=== PATIENT | male | born 1980 | race Caucasian/White ===

== ENCOUNTER 2017-03-22 09:09 | Emergency (ER) | payer OTHER, BC ==
[~2017-03-22] VITALS: Ht 180.3 cm; Wt 115.2 kg
[2017-03-22] MEDS ORDERED: PERCOCET 5/31 TABLET PO (11:43)
[2017-03-22] MEDS ORDERED: KEFLEX500 MG PO (11:44)
[2017-03-22 12:41] VITALS: BP 167/89
== END 2017-03-22 12:41 | disposition home or self-care (01) ==
LOC: EME 09:09
PROC: 3E0234Z Introduction of Serum, Toxoid and Vaccine into Muscle, Percutaneous Approach (ICD-10-PCS; principal; 2017-03-22)
DX: S61.301A Unspecified open wound of left index finger with damage to nail, initial encounter (principal); Z23 Encounter for immunization; W29.8XXA Contact with other powered hand tools and household machinery, initial encounter; Y99.0 Civilian activity done for income or pay; F17.200 Nicotine dependence, unspecified, uncomplicated
CPT/HCPCS: 73140; 99281; 99284